=== PATIENT | male | born 1980 | race Caucasian/White ===

== ENCOUNTER 2019-08-15 12:05 | Emergency (ER) | payer MEDICAID ==
[~2019-08-15] VITALS: Ht 175.3 cm; Wt 68.0 kg
[2019-08-15 12:25] VITALS: Ht 175.3 cm; Wt 68.0 kg
--- NOTE | 2019-08-15 12:47 | NUR ---
PT REFUSED ABG DRAW. DR DOWLING AWARE. WILL MONITOR
[2019-08-15 12:48] LABS: BASOPHIL % 0.6 % (0-2); PLATELET COUNT 289 x10^3mcL (130-400); RED CELL DISTRIBUTION WIDTH 13.3 % (11.5-14.5)
[2019-08-15 13:03] LABS: CALCIUM 9.4 mg/dL (8.5-10.1); CARBON DIOXIDE 22.7 mmol/L (21-32); CHLORIDE SERUM 101 mmol/L (98-107); GFR1 > 60 mL/min; GLUCOSE SERUM 90 mg/dL (74-106); POTASSIUM SERUM 3.4 mmol/L (3.5-5.1); SODIUM SERUM 139 mmol/L (136-145)
[2019-08-15 13:13] LABS: FREE T4 1.12 ng/dL (0.76-1.46)
[2019-08-15 13:15] LABS: T3 TOTAL 1.24 ng/mL
[2019-08-15 13:18] LABS: CK-MB 1.6 ng/mL (0-3.6)
[2019-08-15 13:32] LABS: ALBUMIN 4.5 g/dL (3.4-5.0); ALKALINE PHOSPHATASE 71 U/L (46-116); ALT/SGPT 40 U/L (16-63); AST/SGOT 24 U/L (15-37); BILIRUBIN TOTAL 1.1 mg/dL (0.20-1.00); C REACTIVE PROTEIN 0.6 mg/dL (<=0.9)
[2019-08-15 13:33] LABS: TOTAL PROTEIN, SERUM 8.3 g/dL (6.4-8.2)
[2019-08-15 14:32] LABS: ERYTHROCYTE SED RATE 10 mm/hr (0-15)
[2019-08-15 16:40] VITALS: BP 107/68
== END 2019-08-15 16:40 | disposition home or self-care (01) ==
LOC: ED 12:05
PROVIDERS: Specialist
DX: J18.9 Pneumonia, unspecified organism (principal); E86.0 Dehydration; G89.29 Other chronic pain; M54.9 Dorsalgia, unspecified; F17.210 Nicotine dependence, cigarettes, uncomplicated
CPT/HCPCS: 84439; J0456; J0696; J1885; J2405; J3010; J7050; J7060; J7613; J7644; Q0092; Q9967

== ENCOUNTER 2020-10-04 08:28 | Emergency (ER) | payer MEDICAID, SELFPAY ==
[~2020-10-04] VITALS: Ht 177.8 cm; Wt 72.6 kg
[2020-10-04 08:30] VITALS: Ht 177.8 cm; Wt 72.6 kg
[2020-10-04 09:18] VITALS: BP 125/79
== END 2020-10-04 09:18 | disposition home or self-care (01) ==
LOC: ED 08:28
DX: U07.1 COVID-19 (principal); G89.29 Other chronic pain
CPT/HCPCS: U0003